=== PATIENT | female | born 1950 | race Caucasian/White ===

== ENCOUNTER 2021-07-05 04:19 | Emergency (ER) | payer MEDICARE, SELFPAY ==
[2021-07-05] MEDS ORDERED: ZOFRAN ODT 4 MG PO ONE (04:50)
[2021-07-05] MEDS ORDERED: Sodium Chloride 0.9% 1000 ML 1,000 ML IV STA (04:50)
[2021-07-05] MEDS ORDERED: Hydromorphone 1 mg/ml Injection IV ONE ×2 (04:50→07:28)
[2021-07-05] MEDS ORDERED: Sodium Chloride 0.9% 500 ML 500 ML IV ONE ×4 (04:52→07:08)
[2021-07-05] MEDS ORDERED: Zofran 4 MG/2 ML VIAL ONE (04:54)
[2021-07-05] MEDS ORDERED: Hydromorphone 1 mg/ml Injection ONE (04:54)
[2021-07-05] MEDS ORDERED: Zofran 4 MG/2 ML VIAL IV ONE (04:57)
[2021-07-05 05:27] LABS: Absolute Neutrophil Ct (ANC) 3.83 (1.4-6.9); Basophil (Absolute #) 0.05 (0-0.4); Eosinophil % 2.1 % (0.00-5.0); Eosinophil (Absolute #) 0.17 (0-0.5); Hematocrit 45.4 % (35-47); Hemoglobin 14.8 gm/dl (12.0-16.0); Lymphocyte (Absolute #) 3.43 (1.0-4.6); Lymphocytes % 41.9 % (24.0-44.0); Mean Cell Volume 92.8 fl (78-100); Mean Corpuscular Hemoglobin 30.3 pg (26-32); Mean Corpuscular Hgb Concent. 32.6 g/dl (32-36); Mean Platelet Volume 10.5 fl (7.5-11.0); Monocyte (Absolute #) 0.71 (0.0-1.3); Monocytes % 8.7 % (0.0-12.0); Neutrophil % 46.7 % (36.0-66.0); Platelet Count 185 K/mm3 (150-450); Red Blood Count 4.89 M/mm3 (4.1-5.4); Red Cell Distribution Width 13.4 % (11.5-14.0); White Blood Count 8.2 K/mm3 (4.0-10.5)
[2021-07-05 05:58] LABS: ALBUMIN 3.7 g/dL (3.5-5.0); ALKALINE PHOSPHATASE 64 U/L (38-126); ANION GAP 11.4 MEQ/L (5-15); BLOOD UREA NITROGEN 10 mg/dL (7-17); CHLORIDE 97 mmol/L (98-107); Calcium 8.9 mg/dL (8.4-10.2); Carbon Dioxide 33 mmol/L (22-30); Creatinine 1 0.66 mg/dL (0.52-1.04); EST GLOMERULAR FILTRATION RATE > 60.0 ML/MIN; Glucose 113 mg/dL (74-106); LIPASE 70 U/L (23-300); SGOT/AST 18 U/L (14-36); SGPT/ALT 14 U/L (0-35); SODIUM 139 mmol/L (137-145); Total Protein 6.5 g/dL (6.3-8.2)
[2021-07-05 06:08] LABS: Potassium 2.8 mmol/L (3.5-5.1)
[2021-07-05 06:20] LABS: Appearance SLIGHTLY CLOUDY (CLEAR); Bacteria FEW /HPF (NEGATIVE); Bilirubin NEGATIVE (NEGATIVE); Blood LARGE Ery/ul (0-5); Epithelial Cells RARE /HPF (FEW); Glucose NEGATIVE (NEGATIVE); Ketones NEGATIVE (NEGATIVE); Leukocyte Esterase SMALL (NEGATIVE); Nitrite NEGATIVE (NEGATIVE); Protein,Urine Dip NEGATIVE (Negative); Specific Gravity 1.013 (1.005-1.025); Urobilinogen 4 mg/dL (0-1)
[2021-07-05 06:24] LABS: RBC >101 /HPF (0-2)
[2021-07-05] MEDS ORDERED: POTASSIUM CHLORIDE 20 mEq IN WATER 100ML 20 MEQ/100 ML BAG IV ONE (06:24)
[2021-07-05] MEDS ORDERED: Klor Con 10 MEQ PO ONE ×2 (06:24→06:28)
[2021-07-05] MEDS ORDERED: ROCEPHIN 2 Gm-D5w 50ML BAG** 2 G/50 ML IVPB IV ONE (06:28)
[2021-07-05] MEDS ORDERED: POTASSIUM CHLORIDE 20 mEq IN WATER 100ML 100 ML IV ONE (06:29)
[2021-07-05] MEDS ORDERED: ROCEPHIN 2 Gm-D5w 50ML BAG** 2 G/50 ML IVPB IV STA (06:32)
--- NOTE | 2021-07-05 06:36 | ERPHSYRPT ---
- History of Present Illness Historian: patient Exam Limitations: no limitations Patient Subjective Stated Complaint: abd pain lt side and lt flank pain Triage Nursing Assessment: pt c/o lt flank pain which comes around to lt abd area. Bowel sounds present x4 quad, tender on palpation. Pt has nausea and indigestion, denies any vomiting or diarrhea. Timing/Duration: hour(s) (3), constant, sudden, worse Activities at Onset: sleep Quality: sharpness Abdominal Pain Onset Location: flank Pain Radiation: back Severity of Pain-Max: moderate Severity of Pain-Current: moderate Modifying Factors: Improves With: nothing Associated Symptoms: nausea Previous symptoms: no prior history Hx Tetanus, Diphtheria Vaccination/Date Given: Yes Hx Influenza Vaccination/Date Given: Yes Hx Pneumococcal Vaccination/Date Given: No Immunizations Up to Date: Yes <VIOLETTE FIELD - Last Filed: 07/05/21 06:33> <ALFIE CASTANEDA - Last Filed: 07/05/21 07:42> - History of Present Illness Time Seen by Provider: 07/05/21 04:33 Physician History: 71 years old female presented in the ER with chief complaint of left flank pain waking her up from sleep around 1 AM, continuous, moderate intensity, sharp in nature with radiation to the back with associated nausea but no vomiting. Denies any urinary symptoms. Unable to recall any aggravating or relieving symptoms. No fever or chills reported. Denies any history of kidney stones. No lower extremity pain numbness or weakness. (VIOLETTE FIELD) Allergies/Adverse Reactions: Penicillins Allergy (Severe, Verified 07/05/21 04:39) Difficulty Breathing morphine Adverse Reaction (Severe, Verified 07/05/21 04:39) Difficulty Breathing Home Medications: Atenolol/Chlorthalidone [Atenolol-Chlorthal 50-25 Tb] 1 tab PO DAILY 12/13/15 [ History] Insulin Glargine/Lixisenatide [Soliqua 100 Unit-33 Mcg/ml Pen] 30 units SQ DAILY 07/05/21 [History] Travel Risk - International Travel Have you traveled outside of the country in past 3 weeks: No - Coronavirus Screening Are you exhibiting any of the following symptoms?: No Close contact with a COVID-19 positive Pt in past 14-21 Days: No - Vaccine Status Have you recieved a Covid-19 vaccination: Yes [employer]: [employer] - Vaccination Dates Date of 2cond Vaccination (if applicable): . Comment: and booster <VIOLETTE FIELD - Last Filed: 07/05/21 06:33> - Review of Systems Constitutional: No Symptoms Eyes: No Symptoms Ears, Nose, & Throat: No Symptoms Respiratory: No Symptoms Cardiac: No Symptoms Abdominal/Gastrointestinal: Abdominal Pain, Nausea Genitourinary Symptoms: No Symptoms Musculoskeletal: Back Pain Skin: No Symptoms Neurological: No Symptoms Psychological: No Symptoms Endocrine: No Symptoms Hematologic/Lymphatic: No Symptoms Immunological/Allergic: No Symptoms <RASHIDAVIOLETTE - Last Filed: 07/05/21 06:33> - Past Medical History Pertinent Past Medical History: Yes Neurological History: No Pertinent History ENT History: No Pertinent History Cardiac History: Hypertension Respiratory History: No Pertinent History Endocrine Medical History: Diabetes Type II Musculoskeletal History: No Pertinent History GI Medical History: Diverticulitis, Diverticulosis, Hernia History: No Pertinent History Psycho-Social History: No Pertinent History Female Reproductive Disorders: No Pertinent History Other Medical History: HIATAL HERNIA - Past Surgical History Past Surgical History: Yes Neuro Surgical History: No Pertinent History Cardiac: No Pertinent History Respiratory: No Pertinent History Gastrointestinal: No Pertinent History Genitourinary: No Pertinent History Musculoskeletal: No Pertinent History Female Surgical History: Hysterectomy Other Surgical History: HIATAL HERNIA REPAIR. GANGLION CYST REMOVED - Social History Smoking Status: Never smoker Exposure to second hand smoke: No Drug Use: none Patient Lives Alone: No - Female History Hx Now: No <VIOLETTE FIELD - Last Filed: 07/05/21 06:33> - Physical Exam General Appearance: no apparent distress Eye Exam: PERRL/EOMI Ears, Nose, Throat Exam: normal ENT inspection Neck Exam: normal inspection, non-tender, supple, full range of motion Respiratory Exam: normal breath sounds, lungs clear Cardiovascular Exam: regular rate/rhythm, normal heart sounds, normal peripheral pulses Gastrointestinal/Abdomen Exam: soft, normal bowel sounds, tenderness (Left flank), No guarding Back Exam: normal inspection, normal range of motion, CVA tenderness (Left) Extremity Exam: normal inspection, normal range of motion Neurologic Exam: alert, oriented x 3, cooperative Skin Exam: normal color SpO2 Interpretation: normal SpO2: 98 O2 Delivery: Room Air <VIOLETTE FIELD - Last Filed: 07/05/21 06:33> - Nursing Vital Signs Nursing Vital Signs: Initial Vital Signs Temperature 97.4 F 07/05/21 04:28 Pulse Rate 63 07/05/21 04:28 Respiratory Rate 20 07/05/21 04:28 Blood Pressure 180/82 07/05/21 04:28 O2 Sat by Pulse Oximetry 99 07/05/21 04:28 Pain Scale Pain Intensity 8 Ordered Tests: Active Orders 24 hr Category Date Time Status IV Insertion STAT Care 07/05/21 04:50 Active ABDOMEN AND PELVIS W/0 CONTRAS [CT] Stat Exams 07/05/21 05:11 Taken CBC W DIFF Stat Lab 07/05/21 05:22 Completed CMP Stat Lab 07/05/21 05:22 Completed CULTURE,URINE Stat Lab 07/05/21 04:27 Received LIPASE Stat Lab 07/05/21 05:22 Completed UA W/RFX UR CULTURE Stat Lab 07/05/21 04:27 Completed Medication Summary Generic Name Dose Route Start Last Admin Trade Name Kalina PRN Reason Stop Dose Admin Potassium Chloride 20 meq in 100 mls @ 50 mls/hr 07/05/21 06:24 07/05/21 07:07 Potassium Chloride 20 Meq In Water 100ml IV 07/05/21 08:23 50 mls/hr STAT ONE Administration Sodium Chloride 500 mls @ 500 mls/hr 07/05/21 07:08 07/05/21 07:09 Sodium Chloride 0.9% 500 Ml IV 07/05/21 08:07 500 mls/hr .Q1H ONE Administration Discontinued Medications Generic Name Dose Route Start Last Admin Trade Name Kalina PRN Reason Stop Dose Admin Hydromorphone HCl Confirm 07/05/21 04:54 Hydromorphone 1 Mg/1ml Inj 1 Mg/Ml Syringe Administered 07/05/21 04:55 Dose 1 mg .ROUTE .STK-MED ONE Hydromorphone HCl 0.5 mg 07/05/21 04:50 07/05/21 07:04 Hydromorphone 1 Mg/1ml Inj 1 Mg/Ml Syringe IV 07/05/21 04:51 0.5 mg STAT ONE Administration Hydromorphone HCl 0.5 mg 07/05/21 07:28 Hydromorphone 1 Mg/1ml Inj 1 Mg/Ml Syringe IV 07/05/21 07:29 STAT ONE Sodium Chloride 1,000 mls @ 999 mls/hr 07/05/21 04:50 07/05/21 04:52 Sodium Chloride 0.9% 1000 Ml IV 07/05/21 05:50 Not Given .Q1H1M STA Sodium Chloride 500 mls @ 500 mls/hr 07/05/21 04:52 07/05/21 05:48 Sodium Chloride 0.9% 500 Ml IV 07/05/21 05:51 Infused .Q1H ONE Infusion Sodium Chloride Confirm 07/05/21 04:54 Sodium Chloride 0.9% 500 Ml Administered 07/05/21 04:55 Dose 500 mls @ ud IV .STK-MED ONE Ceftriaxone Sodium/Dextrose Confirm 07/05/21 06:28 Rocephin 2 Gm-D5w 50ml Bag Administered 07/05/21 06:29 Dose 2 g in 50 mls @ ud IV .STK-MED ONE Potassium Chloride Confirm 07/05/21 06:29 Potassium Chloride 20 Meq In Water 100ml Administered 07/05/21 06:30 Dose 100 mls @ ud IV .STK-MED ONE Ceftriaxone Sodium/Dextrose 2 g in 50 mls @ 100 mls/hr 07/05/21 06:32 07/05/21 06:34 Rocephin 2 Gm-D5w 50ml Bag IV 07/05/21 07:01 100 mls/hr STAT STA 100 mls/hr Administration Sodium Chloride Confirm 07/05/21 07:08 Sodium Chloride 0.9% 500 Ml Administered 07/05/21 07:09 Dose 500 mls @ ud IV .STK-MED ONE Ketorolac Tromethamine 30 mg 07/05/21 07:28 07/05/21 07:32 Ketorolac Tromethamine 30 Mg/Ml Inj IV 07/05/21 07:29 30 mg STAT ONE Administration Ketorolac Tromethamine Confirm 07/05/21 07:32 Ketorolac Tromethamine 30 Mg/Ml Inj Administered 07/05/21 07:33 Dose 30 mg .ROUTE .STK-MED ONE Ondansetron HCl 4 mg 07/05/21 04:50 07/05/21 04:56 Zofran 4 Mg/Udtablet Orally Disintegrating PO 07/05/21 04:51 Not Given STAT ONE Ondansetron HCl 4 mg 07/05/21 04:57 07/05/21 04:57 Ondansetron Hcl 4 Mg/2 Ml Vial IV 07/05/21 04:58 4 mg STAT ONE Administration Ondansetron HCl Confirm 07/05/21 04:54 Ondansetron Hcl 4 Mg/2 Ml Vial Administered 07/05/21 04:55 Dose 4 mg .ROUTE .STK-MED ONE Potassium Chloride 40 meq 07/05/21 06:24 07/05/21 06:34 Potassium Chloride 10 Meq Tablet PO 07/05/21 06:25 40 meq STAT ONE Administration Potassium Chloride Confirm 07/05/21 06:28 Potassium Chloride 10 Meq Tablet Administered 07/05/21 06:29 Dose 40 meq PO .STK-MED ONE Tamsulosin HCl 0.4 mg 07/05/21 07:18 07/05/21 07:32 Tamsulosin Hcl 0.4 Mg Cap PO 07/05/21 07:19 0.4 mg ONCE STA Administration Tamsulosin HCl Confirm 07/05/21 07:32 Tamsulosin Hcl 0.4 Mg Cap Administered 07/05/21 07:33 Dose 0.4 mg .ROUTE .STK-MED ONE Lab/Rad Data: Laboratory Result Diagrams 07/05/21 05:22 07/05/21 05:22 Laboratory Results 07/05/21 07/05/21 07/05/21 Range/Units 05:22 05:22 04:27 WBC 8.2 (4.0-10.5) K/mm3 RBC 4.89 (4.1-5.4) M/mm3 Hgb 14.8 (12.0-16.0) gm/dl Hct 45.4 (35-47) % MCV 92.8 (78-100) fl MCH 30.3 (26-32) pg MCHC 32.6 (32-36) g/dl RDW 13.4 (11.5-14.0) % Plt Count 185 (150-450) K/mm3 MPV 10.5 (7.5-11.0) fl Gran % 46.7 (36.0-66.0) % Eos # (Auto) 0.17 (0-0.5) Absolute Lymphs (auto) 3.43 (1.0-4.6) Absolute Monos (auto) 0.71 (0.0-1.3) Lymphocytes % 41.9 (24.0-44.0) % Monocytes % 8.7 (0.0-12.0) % Eosinophils % 2.1 (0.00-5.0) % Basophils % 0.6 (0.0-0.4) % Absolute Granulocytes 3.83 (1.4-6.9) Basophils # 0.05 (0-0.4) Sodium 139 (137-145) mmol/L Potassium 2.8 L* (3.5-5.1) mmol/L Chloride 97 L (98-107) mmol/L Carbon Dioxide 33 H (22-30) mmol/L Anion Gap 11.4 (5-15) MEQ/L BUN 10 (7-17) mg/dL Creatinine 0.66 (0.52-1.04) mg/dL Estimated GFR > 60.0 ML/MIN Glucose 113 H (74-106) mg/dL Calcium 8.9 (8.4-10.2) mg/dL Total Bilirubin 0.80 (0.2-1.3) mg/dL AST 18 (14-36) U/L ALT 14 (0-35) U/L Alkaline Phosphatase 64 (38-126) U/L Serum Total Protein 6.5 (6.3-8.2) g/dL Albumin 3.7 (3.5-5.0) g/dL Lipase 70 (23-300) U/L Urine Color YELLOW (YELLOW) Urine Appearance SLIGHTLY CLOUDY (CLEAR) Urine pH 7.0 (5-6) Ur Specific [place] 1.013 (1.005-1.025) Urine Protein NEGATIVE (Negative) Urine Ketones NEGATIVE (NEGATIVE) Urine Blood LARGE (0-5) Carmelo/ul Urine Nitrite NEGATIVE (NEGATIVE) Urine Bilirubin NEGATIVE (NEGATIVE) Urine Urobilinogen 4 (0-1) mg/dL Ur Leukocyte Esterase SMALL (NEGATIVE) Urine WBC (Auto) 16-25 (0-5) /HPF Urine RBC (Auto) >101 (0-2) /HPF U Epithel Cells (Auto) RARE (FEW) /HPF Urine Bacteria (Auto) FEW (NEGATIVE) /HPF Urine Culture Reflexed YES (NO) Urine Glucose NEGATIVE (NEGATIVE) mg/dL - Progress Progress: improved Counseled pt/family regarding: lab results, diagnosis, need for follow-up, rad results <VIOLETTE FIELD - Last Filed: 07/05/21 06:33> <ALFIE CASTANEDA - Last Filed: 07/05/21 07:42> - Progress Progress Note: 07/05/21 06:36 She is given fluids and IV pain medication along with Zofran, on reevaluation feeling much better. Work-up showed normal white count, chemistry profile grossly unremarkable except for hypokalemia and given oral and IV replacements. She does have UTI and given a dose of Levaquin. (VIOLETTE FIELD) 07/05/21 07:36 Medical decision making: This patient was discussed with Dr. Harvey who is a ur ologist at [facility]. They have no beds available at this time. Dr. Harvey recommends that we discharge the patient home with Flomax, pain control and antibiotics. We will attempt to make an appointment with his office for tomorrow, 07/06/2021. At that time, he will make arrangements for urologic intervention if indicated. Patient will be told to follow-up at [facility] if her symptoms worsen. (ALFIE CASTANEDA) <VIOLETTE FIELD - Last Filed: 07/05/21 06:33> - Departure Departure Disposition: Home Critical Care Time: No <ALFIE CASTANEDA - Last Filed: 07/05/21 07:42> - Departure Clinical Impression: Left ureteral calculus, UTI (urinary tract infection) Condition: Stable Referrals: THADDEUS SMALLWOOD MD [Primary Care Provider] - Follow up/PCP as directed Additional Instructions: Drink plenty of fluids. Add ibuprofen 6 mg orally 3 times a day with food. Take your medication as prescribed. Follow-up with Dr. Harvey, urology, at the scheduled appointment time tomorrow, 07/06/2021. Do not eat or drink anything 8 hours prior to the appointment time. Follow up at the emergency department at [facility] if your symptoms worsen. Prescriptions: Hydrocodone/APAP 5/325 [[place] 5/325 mg] 1 each PO Q8H PRN PRN #8 tablet MDD 3 PRN Reason: Pain Ciprofloxacin [Cipro 500 MG] 500 mg PO BID #14 tablet Tamsulosin HCl 0.4 mg [Flomax 0.4 MG] 0.4 mg PO DAILY #7 cap
[2021-07-05] MEDS ORDERED: Flomax 0.4 MG PO STA (07:18)
[2021-07-05] MEDS ORDERED: TORAdol 30 mg Injection IV ONE (07:28)
[2021-07-05] MEDS ORDERED: Flomax 0.4 MG ONE (07:32)
[2021-07-05] MEDS ORDERED: TORAdol 30 mg Injection ONE (07:32)
[2021-07-05 08:00] VITALS: BP 153/78; PULSE 80; O2SAT 99
--- NOTE | 2021-07-05 09:00 | XRAY ---
Indication: Left flank pain. Multiple contiguous axial images obtained through the abdomen and pelvis without contrast using renal stone protocol. Comparison: December 13, 2015. Lung bases again demonstrates bibasilar dependent atelectasis. No infiltrate or effusion. Heart borderline enlarged. Again moderate sized hiatal hernia with partial intrathoracic stomach. New 7 mm proximal left ureter calculus approximately L3 level and 7 mm left UVJ calculus. Proximal left ureter is slightly prominent along with mild left hydronephrosis consistent with partial obstructive uropathy. No perinephric fluid. Left kidney demonstrates 2 additional punctate calculi. No renal calculus or evidence for obstructive uropathy on the right. Noncontrasted stomach and bowel loops nonobstructed. Appendectomy and hysterectomy reported. Mild diffuse scattered colonic fecal debris throughout. New tiny gallstones. No free fluid/air. Again numerous splenic calcified granulomas. Remaining liver, gallbladder, pancreas, spleen, adrenal glands, kidneys, ureters, and bladder are unremarkable for noncontrast exam. Again minimal scattered aortoiliac calcifications without AAA. Osseous structures intact again with mild degenerative changes throughout the thoracolumbar spine, T10 vertebral hemangioma, and bilateral L5 spondylolysis with grade 2 spondylolisthesis. Impression: 1. Left ureter demonstrates new 7 mm proximal and distal UVJ calculi producing obstructive uropathy as detailed. Additional left renal punctate calculi. 2. New tiny gallstones better evaluated with sonogram if clinically warranted. 3. Mild diffuse fecal stasis. 4. Again hiatal hernia with partial intrathoracic stomach, chronic bony findings, and old granulomatous disease. Comment: Preliminary interpretation made by [facility]. No critical discrepancy.
== END 2021-07-05 09:11 | disposition home or self-care (01) ==
LOC: ED 04:19
DX: N39.0 Urinary tract infection, site not specified (principal); N20.1 Calculus of ureter; E11.9 Type 2 diabetes mellitus without complications; Z79.4 Long term (current) use of insulin; I10 Essential (primary) hypertension; Z79.891 Long term (current) use of opiate analgesic
CPT/HCPCS: 36000; 36415; 74176; 80053; 81001; 83690; 85025; 87077; 87086; 87186; 96365; 96374; 96375; 99285; J0696; J1170; J1885; J2405; J3480; A9270-GY